=== PATIENT | female | born 1940 | race Caucasian/White ===

== ENCOUNTER → 2016-10-07 | Outpatient (REF) | payer MEDICARE, OTHER ==
[~2016-10-07] MED LIST: ACYC800T PO; SULF1TAB35 PO; statin
[2016-10-07 16:24] LABS: BASOPHILS % (AUTO) 0 % (0-2); EOSINOPHILS # (AUTO) 0.1 10^3uL; EOSINOPHILS % (AUTO) 2 % (0-4); LYMPHOCYTES # (AUTO) 1.3 X10^3; MEAN CORPUSCULAR VOLUME 88 FL (80-100); MEAN PLATELET VOLUME 9.4 FL (6.0-9.5); MONOCYTES # (AUTO) 0.5 X10^3; MONOCYTES % (AUTO) 10 % (3-11); NEUTROPHILS # (AUTO) 3.5 X10^3; NEUTROPHILS % (AUTO) 64 % (51-67); PLATELET COUNT 275 10^3uL (150-450); WHITE BLOOD COUNT 5.49 10^3uL (4.0-11.0)
[2016-10-07 17:26] LABS: ERYTHROCYTE SEDIMENTATION RT* 10 mm/hr (0-23)
== END ==
LOC: LAB 16:05
PROVIDERS: ATTEND Family Medicine
DX: R68.84 Jaw pain (principal)
CPT/HCPCS: 85025; 85652; 86140

== ENCOUNTER → 2016-10-07 | Outpatient (CLI) | payer MEDICARE, OTHER ==
--- NOTE | 2016-10-07 18:05 | Diagnostic Imaging Report ---
CLINICAL INDICATION: Patient with jaw pain. Patient complains of pain to the left jaw near TMJ. EXAM: X-ray of the mandible, multiple views. COMPARISON: None. FINDINGS: There is no evidence of fracture or dislocation. The TMJ joints appear to be well positioned with no dislocation on the closed mouth view. There is no bony destructive process seen. There is multilevel cervical spine degenerative disease with vertebral body spurs and facet arthropathy. IMPRESSION: Unremarkable x-ray of the temporomandibular joints, as visualized. If there is continued concern, then MRI of the TMJ joints may better evaluate. Dictated by: Dictated on workstation # [id number]
== END ==
LOC: RAD 16:18
PROVIDERS: ATTEND Family Medicine
DX: R68.84 Jaw pain (principal)
CPT/HCPCS: 70110